=== PATIENT | male | born 1980 | race Caucasian/White ===

== ENCOUNTER → 2023-05-22 09:38 | Outpatient (REF) | payer OTHER, SELFPAY | LOC: RCS 09:38 | PROVIDERS: ATTENDING PHYSICIAN Internal Medicine Cardiovascular Disease; FAMILY PHYSICIAN Physician Assistant Medical | DX: Z95.2 Presence of prosthetic heart valve (principal); I49.8 Other specified cardiac arrhythmias; R00.2 Palpitations | CPT/HCPCS: 93225; 93226 ==

== ENCOUNTER → 2023-06-10 15:02 | Outpatient (REF) | payer OTHER, SELFPAY | LOC: DHCBC MAIN 15:02 | PROVIDERS: ATTENDING PHYSICIAN Internal Medicine Cardiovascular Disease; FAMILY PHYSICIAN Physician Assistant Medical | DX: Z95.2 Presence of prosthetic heart valve (principal); I71.010 Dissection of ascending aorta | CPT/HCPCS: 93306 ==

== ENCOUNTER → 2024-06-06 13:39 | Outpatient (REF) | payer OTHER, SELFPAY | LOC: PAVMRI 13:39 | PROVIDERS: ATTENDING PHYSICIAN Internal Medicine Cardiovascular Disease; FAMILY PHYSICIAN Family Medicine | DX: I71.010 Dissection of ascending aorta (principal); Z95.2 Presence of prosthetic heart valve | CPT/HCPCS: 71555; 76014; A9585 ==

== ENCOUNTER 2024-06-28 03:20 | Emergency (ER) | payer OTHER, SELFPAY ==
[2024-06-28] VITALS (8 sets, daily range): BP systolic 114–143; BP diastolic 62–80
--- NOTE | 2024-06-28 03:36 | ED.GENMED ---
History of Present Illness
<Yasmine Zavala PA-C - Last Filed: 06/28/24 22:56>
General
Chief Complaint: Chest Pain
Source: patient
Exam Limitations: none
Time Seen by Provider: 06/28/24 03:20
Nursing documentation reviewed up to this point in time: agreed with
History of Present Illness
History of Present Illness:
43-year-old male with a past medical history of tobacco use, hyperlipidemia, type A aortic dissection, anxiety, presents emergency department today with concerns of chest pain for the past 4 hours or so. Patient states that he was lying down in bed
when he had a sudden onset of chest pain and pressure. Patient compares this pain to when he had an aortic dissection in 2019. 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 At that time, he had repair with mechanical aortic
valve replacement as well. He does take Coumadin for this. 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 He states that occasionally pain will radiate into
the right upper abdomen. He denies any nausea or vomiting. Denies any fevers or chills. He denies any history of [place]. He denies any syncopal episodes, lightheadedness, dizziness. He denies any back pain. He denies any abdominal pain.
Review of Systems
<Yasmine Zavala PA-C - Last Filed: 06/28/24 22:56>
Review of Systems
All Other Systems: ROS reviewed and negative except as documented in HPI and ROS
Phy Exam
<Yasmine Zavala PA-C - Last Filed: 06/28/24 22:56>
Physical Exam
Physical Exam:
General: Patient is well appearing and in no acute distress; non-toxic
Skin: Warm and dry, no rashes or lesions
Head: Normocephalic, atraumatic
Eyes: Sclera non-icteric. EOMs intact.
Cardiac: Regular rate and rhythm, systolic click noted
Peripheral Vascular: No lower extremity edema, 2+ dorsalis pedis pulses bilaterally. 2+ radial pulses bilaterally.
Pulm: Normal respiratory effort, no wheezes, rales, rhonchi
Abdomen: No abdominal tenderness to palpation
Musculoskeletal: No tenderness to palpation of the external chest wall
Neuro: CN II-XII intact, no focal neurologic deficits.
Psychiatric: Appropriate mood and affect.
Scores
<Yasmine Zavala PA-C - Last Filed: 06/28/24 22:56>
Heart Score for Chest Pain Patients
STEMI patient?: No
History: Slightly or Non-Suspicious
ECG: Normal
Age: </= 45 years
Risk Factors: 1 or 2 Risk Factors
Troponin: </= Normal Limit
Heart Score for Chest Pain Patients: 1
Heart Score Risk: 2.5% MACE over next 6 weeks
Course
<Yasmine Zavala PA-C - Last Filed: 06/28/24 22:56>
Orders/Labs/Results
Orders:
Orders
06/28/24 03:22
Electrocardiogram (*1) Urgent
Reason for Study: Chest Pain
06/28/24 03:23
EKG- Treatment ONCE
06/28/24 03:36
CT Chest/abd/pelvis Angio W/wo Urgent
Comment:
Reason For Exam: chest pain
06/28/24 03:41
Complete Blood Count/With Diff Urgent
Comprehensive Metabolic Panel Urgent
Lipase Urgent
Prothrombin Time Urgent
Troponin I Q3H
06/28/24 05:30
Troponin I Urgent
06/28/24 05:32
US Abdomen Limited Urgent
Comment:
Reason For Exam: RUQ pain
06/28/24 06:14
Electrocardiogram (*1) Urgent
Reason for Study: Chest Pain
EKG- Treatment ONCE
06/28/24 08:27
Acetaminophen [Tylenol] 650 mg PO NOW STA
Abnormal Lab Results
06/28/24
03:41
Absolute Monos (auto) 0.7 H 10^3/uL
(0.1-0.6)
PT 36.9 H Sec
(11.4-14.6)
Carbon Dioxide 33 H mmol/L
(22-30)
Glucose 118 H mg/dl
(70-99)
ALT 57 H U/L
(0-50)
06/28/24 03:41
06/28/24 03:41
Vital Signs
Initial and Last Documented VS:
Initial Vital Signs
BP
141/78
06/28/24 03:21
Last Documented Vital Signs
Temp Pulse Resp BP Pulse Ox
99.4 F 52 14 121/71 94
06/28/24 03:24 06/28/24 08:30 06/28/24 08:30 06/28/24 08:00 06/28/24 08:15
Kalelt;Alem Brown, DO - Last Filed: 06/28/24 06:23>
Orders/Labs/Results
Orders:
Orders
06/28/24 03:22
Electrocardiogram (*1) Urgent
Reason for Study: Chest Pain
06/28/24 03:23
EKG- Treatment ONCE
06/28/24 03:36
CT Chest/abd/pelvis Angio W/wo Urgent
Comment:
Reason For Exam: chest pain
06/28/24 03:41
Complete Blood Count/With Diff Urgent
Comprehensive Metabolic Panel Urgent
Lipase Urgent
Prothrombin Time Urgent
Troponin I Q3H
06/28/24 05:30
Troponin I Urgent
06/28/24 05:32
US Abdomen Limited Urgent
Comment:
Reason For Exam: RUQ pain
06/28/24 06:14
Electrocardiogram (*1) Urgent
Reason for Study: Chest Pain
EKG- Treatment ONCE
06/28/24 08:27
Acetaminophen [Tylenol] 650 mg PO NOW STA
Abnormal Lab Results
06/28/24
03:41
Absolute Monos (auto) 0.7 H 10^3/uL
(0.1-0.6)
PT 36.9 H Sec
(11.4-14.6)
Carbon Dioxide 33 H mmol/L
(22-30)
Glucose 118 H mg/dl
(70-99)
ALT 57 H U/L
(0-50)
06/28/24 03:41
06/28/24 03:41
Vital Signs
Initial and Last Documented VS:
Initial Vital Signs
BP
141/78
06/28/24 03:21
Last Documented Vital Signs
Temp Pulse Resp BP Pulse Ox
99.4 F 52 14 121/71 94
06/28/24 03:24 06/28/24 08:30 06/28/24 08:30 06/28/24 08:00 06/28/24 08:15
Kalelt;Yasmine Zavala PA-C - Last Filed: 06/28/24 22:56>
MDM/Problems Addressed
Differential Diagnosis Includes:
ddx include ACS, progression of aortic dissection, GERD, biliary colic, musculoskeletal sprain/strain
MDM/Problems Addressed:
43-year-old male with a past medical history of tobacco use, hyperlipidemia, type A aortic dissection, anxiety, presents emergency department today with concerns of chest pain for the past 4 hours or so. Patient states that he was lying down in bed
when he had a sudden onset of chest pain and pressure. He did present to when he had an acute dissection. He also notes right-sided paresthesias. Physical exam he is well-appearing in no acute distress his vital signs are stable. He has no
tenderness palpation of external chest wall. 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
intramural hematoma or penetrating thoracic ulcer. When comparing to prior scans, there appears to be no change, no new findings. His EKG shows normal sinus rhythm with occasional PVCs no ischemic changes his initial troponin is undetectable.
When reassessed, patient does point to his right upper abdominal quadrant stating is where he has pressure, will order ultrasound to assess for acute cholecystitis/biliary colic.
<Yasmine Zavala PA-C - Last Filed: 06/28/24 22:56>
*Pulse Oximetry
Patient hypoxic: no
*EKG
Interpreted by ED Provider?: Yes
Comparison EKG: no comparison EKG present
Heart Rate: 74
Rhythm: sinus and PVC's
Junior: normal axis
*Critical Care Note
Total Time (30-74mins, 75-104mins- exclusive of procedures): Not Applicable
Data Reviewed
Review of Other/Old Records Reveals: Records (Reviewed Holter monitor report from 05/22/2023 revealed sinus rhythm with frequent reported, reviewed prior echo from 06/10/2023 echo shows normally functioning mechanical aortic valve with no significant
changes)
Source: patient and records
ED Attending Note
<Yasmine Zavala PA-C - Last Filed: 06/28/24 22:56>
-
Portions of this chart may have been created with voice recognition software.� Occasional wrong word or��sound alike� substitutions may have occurred due to the inherent limitations of voice recognition software.
<Alem Brown DO - Last Filed: 06/28/24 06:23>
ED Attending Note
Patient seen and examined by attending physician: Yes
I performed a history and physical exam of patient and discussed management with resident, I reviewed resident's note and agree with documented findings and plan of care.: Yes
ED Attending Note:
43-year-old gentleman with history of type A aortic dissection with ascending aorta repair, mechanical aortic valve replacement April 2020.
Presents with acute right upper quadrant/right lower chest pain that radiates to his back and reports similar pain experienced with aortic dissection in 2020. He notes mild right arm numbness which has been chronic and unchanged since postop period.
Review of records reveals radiology report March 2022, CT angiogram chest abdomen pelvis revealing postoperative changes related to ascending aortic replacement with graft extending from the aortic root through the proximal arch, bypass graft
extending from the ascending aortic graft through the right coronary artery. Dissection flap is visualized just distal to the takeoff of the left subclavian. Proximal descending aorta is ectatic, unchanged. Distal descending aorta is also
slightly ectatic to about 3.3 cm, unchanged. Extent of the dissection is unchanged again extending to the level of the right internal iliac origin and the left common iliac. There is no propagation of the dissection, no periaortic hematoma.
43-year-old gentleman appears his stated age. Awake and alert, mildly anxious but easily communicative.
Heart is regular rate and rhythm, mechanical click.
Lungs are clear to auscultation.
Abdomen with mild tenderness right upper quadrant. Palpation of right upper quadrant seems to reproduce patient's discomfort.
Concern for ACS, progression of aortic dissection, aortic aneurysm, biliary colic/cholecystitis, GERD.
EKG is unremarkable, no evidence of STEMI.
Will check labs including troponin and plan for CTA chest abdomen pelvis. Consider abdominal ultrasound.
Discharge Plan
Departure
Patient Disposition: Home (Routine Discharge)
Date of Disposition: 06/28/24
Time of Disposition: 08:18
Patient with high blood pressure during this ER visit?: Yes
Condition: Good
Discharge Problem:
Chest pain, Arm paresthesia, right
Instructions: Chest pain - Discharge instructions, BLOOD PRESSURE
Prescriptions:
No Action
atorvastatin 40 mg Tablet
40 mg PO DAILY
citalopram 40 mg Tablet
40 mg PO DAILY
aspirin 325 mg Tablet
325 mg PO DAILY
warfarin 7.5 mg Tablet
7.5 mg PO DAILY
hydroxyzine pamoate [Vistaril] 25 mg Capsule
25 mg PO PRN PRN (Reason: anxiety)
Referrals:
Boo Castro PA-C [Family Provider] -
David Celis MD [Active] - Call in 1-3 days for appt
Activity Restrictions/Additional Instructions:
Please call Dr. Celis's office today to schedule an appointment for follow up.
PLEASE RETURN TO THE EMERGENCY DEPARTMENT SHOULD YOU DEVELOP ACUTE WORSENING OF YOUR SYMPTOMS, SHORTNESS OF BREATH, FAINTING SPELLS, NECK PAIN, OR ANY OTHER SIGNS OR SYMPTOMS WORRISOME TO YOU.
Interventions
Interventions:
*Risk Screen - Suicide Last Done: 06/28/24 03:24
*General Assessment Last Done: 06/28/24 03:24
*Neglect/Abuse Screening Last Done: 06/28/24 03:24
*ED- Fall Risk Assessment Last Done: 06/28/24 03:24
*ED COVID-19 Vaccine History Last Done: 06/28/24 03:24
*Nursing Disposition Last Done: 06/28/24 08:40
ED- Cardiac Assessment Last Done: 06/28/24 03:24
Discharge Date and Time
Discharge Date/Time: 06/28/24 08:40
Print Language: PERSIAN
[2024-06-28 03:51] LABS: % Basophils 0.8 % (0-2); % Eosinophils 1.9 % (0-6); % Immature Granulocytes 0.1 % (0-0.5); % Monocytes 9.3 % (1.7-9.3); % Neutrophils 65.9 % (42.2-75.2); Absolute Basophils 0.1 10^3/uL (0-0.2); Absolute Eosinophils 0.1 10^3/uL (0-0.7); Absolute Lymphocytes 1.6 10^3/uL (1.2-3.4); Absolute Monocytes 0.7 10^3/uL (0.1-0.6); Absolute Neutrophils 4.8 10^3/uL (1.4-6.5); Hematocrit 44.4 % (39.0-52.0); Hemoglobin 15.6 g/dL (13.0-18.0); Mean Corp Hgb Conc. 35.1 g/dL (33.0-37.0); Mean Corpuscular Hgb 30.2 pg (27.0-31.0); Mean Corpuscular Volume 85.9 fL (80.0-94.0); Mean Platelet Volume 9.7 fL (7.4-10.4); Nucleated Red Blood Cells % 0 % (-); Platelet Count 201 10^3/uL (130-400); Red Blood Cell Count 5.17 10^6/uL (4.70-6.10); Red Cell Dist. Width 12.9 % (11.5-14.5); White Blood Cell Count 7.2 10^3/uL (4.8-10.8)
[2024-06-28 04:09] LABS: INR 3.77; PT 36.9 Sec (11.4-14.6)
[2024-06-28 04:13] LABS: Troponin I < 0.012 ng/ml
[2024-06-28 04:15] LABS: ALT (SGPT) 57 U/L (0-50); AST (SGOT) 43 U/L (17-59); Albumin 4.1 g/dl (3.5-5.0); Alkaline Phosphatase 86 U/L (38-126); Blood Urea Nitrogen 17 mg/dl (9-20); Calcium 9.3 mg/dl (8.4-10.2); Carbon Dioxide 33 mmol/L (22-30); Chloride 103 mmol/L (98-107); Estimated Creatinine Clearance 103 ml/min; Glucose 118 mg/dl (70-99); Lipase 95 U/L (23-300); Potassium 4.1 mmol/L (3.5-5.1); Sodium 142 mmol/L (135-145); Total Bilirubin 0.9 mg/dl (0.2-1.3); Total Protein 6.6 g/dl (6.3-8.2); eGFR > 60.00
[2024-06-28 06:44] LABS: Troponin I < 0.012 ng/ml
[2024-06-28] MEDS: TYLENOL 650 MG PO (08:39)
== END 2024-06-28 08:40 | disposition home or self-care (01) ==
LOC: EMR 03:20
PROVIDERS: Physician Assistant; EMERGENCY PHYSICIAN Emergency Medicine; FAMILY PHYSICIAN Physician Assistant Medical
DX: R07.89 Other chest pain (principal); R20.2 Paresthesia of skin; E78.5 Hyperlipidemia, unspecified; I71.019 Dissection of thoracic aorta, unspecified; I71.21 Aneurysm of the ascending aorta, without rupture; R03.0 Elevated blood-pressure reading, without diagnosis of hypertension; Z87.891 Personal history of nicotine dependence
CPT/HCPCS: 99285; 71275; 74174; 76705; 80053; 83690; 84484; 85025; 85610; 93005; Q9967

== ENCOUNTER 2024-07-08 06:22 | Day surgery (SDC) | payer OTHER, SELFPAY ==
[2024-07-08] VITALS (7 sets, daily range): BP systolic 110–117; BP diastolic 60–74; BMI 28.5
== END 2024-07-08 16:08 | disposition home or self-care (01) ==
LOC: SDS 06:22
PROVIDERS: ATTENDING PHYSICIAN Urology
DX: N35.912 Unspecified bulbous urethral stricture, male (principal)
CPT/HCPCS: 52284; C1726

== ENCOUNTER 2024-07-16 16:02 | Emergency (ER) | payer OTHER, SELFPAY ==
[2024-07-16 16:19] VITALS: BP 126/80
[2024-07-16 16:51] LABS: Urine Albumin 4+ (Neg - Trace); Urine Bilirubin Negative (Negative); Urine Character Bloody (Clear); Urine Color Red; Urine Glucose Negative (Negative); Urine Ketone 3+ (Negative); Urine Leukocyte Negative (Negative); Urine Nitrite Negative (Negative); Urine Occult Blood 4+ (Negative); Urine Specific Gravity 1.015 (<1.030); Urine Urobilinogen Negative (Neg - 1+); Urine pH 6.5 (5.0-9.0)
[2024-07-16 16:52] LABS: % Basophils 0.6 % (0-2); % Eosinophils 0.6 % (0-6); % Immature Granulocytes 0.2 % (0-0.5); % Lymphocytes 13.2 % (20.5-51.1); % Monocytes 16.5 % (1.7-9.3); % Neutrophils 68.9 % (42.2-75.2); Absolute Basophils 0.1 10^3/uL (0-0.2); Absolute Eosinophils 0.1 10^3/uL (0-0.7); Absolute Lymphocytes 1.2 10^3/uL (1.2-3.4); Absolute Monocytes 1.5 10^3/uL (0.1-0.6); Absolute Neutrophils 6.2 10^3/uL (1.4-6.5); Hematocrit 43.1 % (39.0-52.0); Hemoglobin 15.3 g/dL (13.0-18.0); Mean Corp Hgb Conc. 35.5 g/dL (33.0-37.0); Mean Corpuscular Hgb 30.1 pg (27.0-31.0); Mean Corpuscular Volume 84.7 fL (80.0-94.0); Mean Platelet Volume 10.2 fL (7.4-10.4); Nucleated Red Blood Cells % 0 % (-); Platelet Count 217 10^3/uL (130-400); Red Blood Cell Count 5.09 10^6/uL (4.70-6.10); Red Cell Dist. Width 12.7 % (11.5-14.5); White Blood Cell Count 8.9 10^3/uL (4.8-10.8)
[2024-07-16 17:00] LABS: INR 2.84; PT 29.8 Sec (11.4-14.6)
[2024-07-16 17:06] LABS: Urine Bacteria Few (Negative); Urine Red Blood Cell >100 /HPF (0-2); Urine Squamous Cell 0-2 /LPF (Few); Urine Yeast Moderate (Negative)
[2024-07-16 17:08] LABS: ALT (SGPT) 20 U/L (0-50); AST (SGOT) 25 U/L (17-59); Albumin 4.4 g/dl (3.5-5.0); Alkaline Phosphatase 74 U/L (38-126); Blood Urea Nitrogen 17 mg/dl (9-20); Calcium 9.1 mg/dl (8.4-10.2); Carbon Dioxide 23 mmol/L (22-30); Chloride 108 mmol/L (98-107); Glucose 139 mg/dl (70-99); Potassium 3.8 mmol/L (3.5-5.1); Sodium 138 mmol/L (135-145); Total Bilirubin 2.1 mg/dl (0.2-1.3); Total Protein 7.3 g/dl (6.3-8.2); eGFR > 60.00
[2024-07-16 17:14] LABS: Troponin I < 0.012 ng/ml
[2024-07-16 20:34] VITALS: BP 137/64
--- NOTE | 2024-07-16 20:37 | ED.GENMED ---
History of Present Illness
<Yasmine Zavala PA-C - Last Filed: 07/17/24 07:36>
General
Chief Complaint: Chest Pain
Source: patient
Exam Limitations: none
Time Seen by Provider: 07/16/24 20:36
Nursing documentation reviewed up to this point in time: agreed with
History of Present Illness
History of Present Illness:
43-year-old male with a past medical history of tobacco use, hyperlipidemia, type aortic dissection, anxiety, presents emergency department with concerns of constant chest pain for the past 3 days. Patient reports that his chest pain started when
he was just at home relaxing and did not relate to exertion. He notes that he has shortness of breath with this as well he notes that he has periodic episodes of lightheadedness. He reports that the pain is worse when he takes a breath. Patient
reports that this feels different than when he had the pain with his aortic dissection. Patient has never had pain similar to this before. He denies any abdominal pain. Patient describes the pain as someone kneeling on his chest and a constant
pressure. He also feels like he has had pain on his right posterior calf. Of note, patient did have a procedure with Dr. Jin on 07/08/2024 where he had a ureteral stricture corrected and he had a Mclean placed for a few days and had the Mclean
removed on 07/13/2024 and reports that since then he has had painless hematuria. He denies any pelvic pain. He denies any burning with urination. He denies any feelings of urinary retention or hesitancy.
Review of Systems
<Yasmine Zavala PA-C - Last Filed: 07/17/24 07:36>
Review of Systems
All Other Systems: ROS reviewed and negative except as documented in HPI and ROS
Phy Exam
<Yasmine Zavala PA-C - Last Filed: 07/17/24 07:36>
Physical Exam
Physical Exam:
General: Patient is well appearing and in no acute distress; non-toxic
Skin: Warm and dry, no rashes or lesions
Head: Normocephalic, atraumatic
Eyes: Sclera non-icteric. EOMs intact.
Cardiac: Regular rate and rhythm, systolic mechanical valve murmur noted, no tenderness to palpation of the external chest wall
Peripheral Vascular: No lower extremity swelling or edema
Pulm: Normal respiratory effort, no wheezes, rales, or rhonchi
Abdomen: No abdominal tenderness to palpation
Neuro: CN II-XII intact, no focal neurologic deficits.
Psychiatric: Appropriate mood and affect.
Scores
<Yasmine Zavala PA-C - Last Filed: 07/17/24 07:36>
Heart Score for Chest Pain Patients
STEMI patient?: No
History: Slightly or Non-Suspicious
ECG: Normal
Age: </= 45 years
Risk Factors: >/= 3 Risk Factors or History of CAD
Troponin: </= Normal Limit
Heart Score for Chest Pain Patients: 2
Heart Score Risk: 2.5% MACE over next 6 weeks
<Donaldo Rosario PA-C - Last Filed: 07/17/24 11:42>
Heart Score for Chest Pain Patients
Heart Score for Chest Pain Patients: 2
Heart Score Risk: 2.5% MACE over next 6 weeks
Course
<NOAH Watson Last Filed: 07/17/24 07:36>
Orders/Labs/Results
Orders:
Orders
07/16/24 16:23
Electrocardiogram (*1) Urgent
Reason for Study: Chest Pain
EKG- Treatment ONCE
07/16/24 16:39
Type And Crossmatch [Type+Screen] Urgent
Complete Blood Count/With Diff Urgent
Comprehensive Metabolic Panel Urgent
Direct Bilirubin Urgent
Comment: ADD ON
Prothrombin Time Urgent
Troponin I Urgent
Urinalysis Reflex To Culture Urgent
Date Specimen was Collected: 07/16/24
Time Specimen was Collected: 16:23
Urine Microscopic Reflex Cult Urgent
Urine Culture Urgent
[place] Source: U
Specimen Description:
Date Specimen was Collected: 07/16/24
Time Specimen was Collected: 16:23
07/16/24 20:38
CT Chest PE Study Urgent
Comment:
Reason For Exam: SOB on exertion
US Legs, Right [US Periph Venous LOWER Ext RT] Urgent
Comment:
Reason For Exam: right calf discomfort
07/16/24 22:40
Add On- LAB Urgent
Tests Added?: indirect bilirubin
Abnormal Lab Results
07/16/24
16:39
Absolute Monos (auto) 1.5 H 10^3/uL
(0.1-0.6)
Lymphocytes % 13.2 L %
(20.5-51.1)
Monocytes % 16.5 H %
(1.7-9.3)
PT 29.8 H Sec
(11.4-14.6)
Chloride 108 H mmol/L
(98-107)
Glucose 139 H mg/dl
(70-99)
Total Bilirubin 2.1 H mg/dl
(0.2-1.3)
Urine Ketones 3+ A
(Negative)
Ur Occult Blood Reflex 4+ A
(Negative)
Urine RBC >100 A /HPF
(0-2)
Urine WBC (Reflex) 11-15 A /HPF
(0-5)
Urine Bacteria (Reflex) Few A
(Negative)
Urine Yeast Moderate A
(Negative)
Urine Albumin (Reflex) 4+ A
(Neg - Trace)
07/16/24 16:39
07/16/24 16:39
Vital Signs
Initial and Last Documented VS:
Initial Vital Signs
Temp Pulse Resp BP Pulse Ox
98.9 F 98 16 126/80 100
07/16/24 16:19 07/16/24 16:19 07/16/24 16:19 07/16/24 16:19 07/16/24 16:19
Last Documented Vital Signs
Temp Pulse Resp BP Pulse Ox
99.0 F 67 16 121/67 97
07/16/24 20:34 07/17/24 00:55 07/17/24 00:55 07/17/24 00:55 07/17/24 00:55
<Forrest Cheatham MD - Last Filed: 07/16/24 23:02>
Orders/Labs/Results
Orders:
Orders
07/16/24 16:23
Electrocardiogram (*1) Urgent
Reason for Study: Chest Pain
EKG- Treatment ONCE
07/16/24 16:39
Type And Crossmatch [Type+Screen] Urgent
Complete Blood Count/With Diff Urgent
Comprehensive Metabolic Panel Urgent
Direct Bilirubin Urgent
Comment: ADD ON
Prothrombin Time Urgent
Troponin I Urgent
Urinalysis Reflex To Culture Urgent
Date Specimen was Collected: 07/16/24
Time Specimen was Collected: 16:23
Urine Microscopic Reflex Cult Urgent
Urine Culture Urgent
[place] Source: U
Specimen Description:
Date Specimen was Collected: 07/16/24
Time Specimen was Collected: 16:23
07/16/24 20:38
CT Chest PE Study Urgent
Comment:
Reason For Exam: SOB on exertion
US Legs, Right [US Periph Venous LOWER Ext RT] Urgent
Comment:
Reason For Exam: right calf discomfort
07/16/24 22:40
Add On- LAB Urgent
Tests Added?: indirect bilirubin
Abnormal Lab Results
07/16/24
16:39
Absolute Monos (auto) 1.5 H 10^3/uL
(0.1-0.6)
Lymphocytes % 13.2 L %
(20.5-51.1)
Monocytes % 16.5 H %
(1.7-9.3)
PT 29.8 H Sec
(11.4-14.6)
Chloride 108 H mmol/L
(98-107)
Glucose 139 H mg/dl
(70-99)
Total Bilirubin 2.1 H mg/dl
(0.2-1.3)
Urine Ketones 3+ A
(Negative)
Ur Occult Blood Reflex 4+ A
(Negative)
Urine RBC >100 A /HPF
(0-2)
Urine WBC (Reflex) 11-15 A /HPF
(0-5)
Urine Bacteria (Reflex) Few A
(Negative)
Urine Yeast Moderate A
(Negative)
Urine Albumin (Reflex) 4+ A
(Neg - Trace)
07/16/24 16:39
07/16/24 16:39
Vital Signs
Initial and Last Documented VS:
Initial Vital Signs
Temp Pulse Resp BP Pulse Ox
98.9 F 98 16 126/80 100
07/16/24 16:19 07/16/24 16:19 07/16/24 16:19 07/16/24 16:19 07/16/24 16:19
Last Documented Vital Signs
Temp Pulse Resp BP Pulse Ox
99.0 F 67 16 121/67 97
07/16/24 20:34 07/17/24 00:55 07/17/24 00:55 07/17/24 00:55 07/17/24 00:55
<Donaldo Rosario PA-C - Last Filed: 07/17/24 11:42>
Orders/Labs/Results
Orders:
Orders
07/16/24 16:23
Electrocardiogram (*1) Urgent
Reason for Study: Chest Pain
EKG- Treatment ONCE
07/16/24 16:39
Type And Crossmatch [Type+Screen] Urgent
Complete Blood Count/With Diff Urgent
Comprehensive Metabolic Panel Urgent
Direct Bilirubin Urgent
Comment: ADD ON
Prothrombin Time Urgent
Troponin I Urgent
Urinalysis Reflex To Culture Urgent
Date Specimen was Collected: 07/16/24
Time Specimen was Collected: 16:23
Urine Microscopic Reflex Cult Urgent
Urine Culture Urgent
[place] Source: U
Specimen Description:
Date Specimen was Collected: 07/16/24
Time Specimen was Collected: 16:23
07/16/24 20:38
CT Chest PE Study Urgent
Comment:
Reason For Exam: SOB on exertion
US Legs, Right [US Periph Venous LOWER Ext RT] Urgent
Comment:
Reason For Exam: right calf discomfort
07/16/24 22:40
Add On- LAB Urgent
Tests Added?: indirect bilirubin
Abnormal Lab Results
07/16/24
16:39
Absolute Monos (auto) 1.5 H 10^3/uL
(0.1-0.6)
Lymphocytes % 13.2 L %
(20.5-51.1)
Monocytes % 16.5 H %
(1.7-9.3)
PT 29.8 H Sec
(11.4-14.6)
Chloride 108 H mmol/L
(98-107)
Glucose 139 H mg/dl
(70-99)
Total Bilirubin 2.1 H mg/dl
(0.2-1.3)
Urine Ketones 3+ A
(Negative)
Ur Occult Blood Reflex 4+ A
(Negative)
Urine RBC >100 A /HPF
(0-2)
Urine WBC (Reflex) 11-15 A /HPF
(0-5)
Urine Bacteria (Reflex) Few A
(Negative)
Urine Yeast Moderate A
(Negative)
Urine Albumin (Reflex) 4+ A
(Neg - Trace)
07/16/24 16:39
07/16/24 16:39
Vital Signs
Initial and Last Documented VS:
Initial Vital Signs
Temp Pulse Resp BP Pulse Ox
98.9 F 98 16 126/80 100
07/16/24 16:19 07/16/24 16:19 07/16/24 16:19 07/16/24 16:19 07/16/24 16:19
Last Documented Vital Signs
Temp Pulse Resp BP Pulse Ox
99.0 F 67 16 121/67 97
07/16/24 20:34 07/17/24 00:55 07/17/24 00:55 07/17/24 00:55 07/17/24 00:55
Kalelt;Yasmine Zavala PA-C - Last Filed: 07/17/24 07:36>
MDM/Problems Addressed
Differential Diagnosis Includes:
PE, ACS, costochondritis, UTI, pneumonia
MDM/Problems Addressed:
43-year-old male with a past medical history of tobacco use, hyperlipidemia, type aortic dissection, anxiety, presents emergency department with concerns of constant chest pain for the past 3 days. Patient reports that his chest pain started when
he was just at home relaxing and did not relate to exertion. He has associated calf pain. On physical exam, he is well appearing, in no acute distress. Systolic murmur noted mechanical heart valve. Did obtain CT PE study in light of pleuritic pain,
episodic shortness of breath, which was negative for PE but did show small pleural effusions although no exudate or consolidation. It showed no new changes to his dissection similar in appearance to prior scan. His troponin his undetectable. His
ECG shows normal sinus rhythm with occasional PVCs. Patient did have a follow up appointment with his music rehabilitation therapist between his last chest pain episode in June 28 and this episode today. No clear etiology to patient's pain at this time. In light
of patient's significant cardiac history, I did discharge patient with the chest pain hotline. Case reviewed with ED attending. Pt stable for discharge.
Patient does note some hematuria and urinary frequency. Suspect this is related to recent urologic procedure. Patient states that he usually gets antibiotics prior to procedures but did not get any abx this time. Urinalysis did show WBC, bacteria,
and yeast which is concerning for infection in light of symptoms and recent procedures. Patient states he did tolerate keflex in the past, will initiate. In light of yeast in urine, will defer to patient's urologist considering significant
interaction between diflucan and warfarin. Patient reports that he will call his urologist tomorrow morning.
Patient does have an isolated elevation in total bilirubin. His LFTs are normal. He has no abdominal pain. He has no signs of jaundice on exam. Considering indirect bilirubin elevated > direct, gilberts syndrome most likely however did discuss with
patient to follow up with primary to have this blood work repeated and further workup done. Patient expressed understanding. Patient stable for discharge.
Chronic conditions affecting care:
type A dissection
<Yasmine Zavala PA-C - Last Filed: 07/17/24 07:36>
*Pulse Oximetry
Patient hypoxic: no
*Critical Care Note
Total Time (30-74mins, 75-104mins- exclusive of procedures): Not Applicable
Data Reviewed
Review of Other/Old Records Reveals: Records (reviewed ER documentation from 06/28/24)
Source: patient and records
<Donaldo Rosario PA-C - Last Filed: 07/17/24 11:42>
Update Note
Update Note:
8:40 AM: Received call from radiology about patient's CT scan, they are concerned that there is some stranding around the aortic dissection that had previously been repaired which appears to be new from scan done previously. I contacted Dr. Shankar
from CT surgery to discuss, currently on his way to the hospital and will review the CT scan and contact me back. I also contacted the patient to discuss these results and see how he is currently feeling as he may require further intervention.
Since I did not personally evaluate the patient it is difficult for me to assess whether patient needs emergent intervention/evaluation or if this is something that is more chronic in nature related to the patient's already known aortic dissection
11:40 AM: I was able to get in contact with the patient who states currently feeling well. I reviewed the CT findings and my discussion with our cardiothoracic surgeon. Patient had his aortic dissection repair done in 2020 at [facility] by
Pasha Haynes. He currently does not have a cardiothoracic nor vascular surgeon that he follows with here. I gave him the information Dr. Shankar as well as Dr. Alexey Mclean for follow-up. Patient is aware of return precautions to the ER and
states he will follow-up with his primary care provider this week as well.
ED Attending Note
<Yasmine Zavala PA-C - Last Filed: 07/17/24 07:36>
-
Portions of this chart may have been created with voice recognition software.� Occasional wrong word or��sound alike� substitutions may have occurred due to the inherent limitations of voice recognition software.
<Forrest Cheatham MD - Last Filed: 07/16/24 23:02>
ED Attending Note
Patient seen and examined by attending physician: Yes
I performed the substantive portion of visit, reviewed & personally made and approve the management plan that is documented in note by myself or DANIEL.: Yes
ED Attending Note:
I have seen and evaluated the patient with a kiql-[id number]-pipe encounter. I have spoken to the [PA] and involved in the medical history, the physical exam, medical decision making.
Evaluation and management service: agree unless noted differently below.
Results interpretation: agree unless noted differently below.
43-year-old male with history of aortic dissection, recent Mclean catheter removal with recent procedure for ureteral stricture presenting to the emergency with chest pain. Patient says for the past few days he has been having chest pain that feels
like pressure in his chest. It is not exertional. No shortness of breath. This does not feel similar to when he had his dissection. No numbness tingling. No weakness. No history of blood clots. He is on Coumadin however they did hold it for
his procedure. He also notes that he has been having clots in his urine. He is able to fully empty his bladder. He does state that occurred after his procedure. During my evaluation patient is resting comfortably. His heart rate is regular rate
and rhythm. He does have 2+ radial pulses. Differential is broad with symptoms of atypical ACS versus PE though less likely as he is on Coumadin. Could be worsening of his dissection though less likely. Patient's painless hematuria secondary to
the procedure. His abdomen is soft benign. History exam not consistent with AAA. Will obtain CT scan and blood work. Anticipate discharge if studies are unremarkable.
Discharge Plan
Departure
Patient Disposition: Home (Routine Discharge)
Date of Disposition: 07/17/24
Time of Disposition: 00:17
Patient with high blood pressure during this ER visit?: Yes
Condition: Good
Discharge Problem:
Chest pain
Instructions: Chest Pain CBC Follow Up, BLOOD PRESSURE
Prescriptions:
New
cephalexin 500 mg capsule
500 mg PO QID 7 Days Qty: 28 0RF
No Action
atorvastatin 40 mg Tablet
40 mg PO DAILY
citalopram 40 mg Tablet
40 mg PO DAILY
aspirin 325 mg Tablet
325 mg PO DAILY
warfarin 7.5 mg Tablet
7.5 mg PO DAILY
hydroxyzine pamoate [Vistaril] 25 mg Capsule
25 mg PO PRN PRN (Reason: anxiety)
Referrals:
oBo Castro PA-C [Family Provider] -
Activity Restrictions/Additional Instructions:
Please call Dr. Jin's office first thing Thursday morning regarding yeast in urine.
Your CT scan showed no evidence of pulmonary embolism.
Please follow-up up with your primary care provider and your music rehabilitation therapist.
Please return the emergency department for new or worsening symptoms.
Interventions
Interventions:
*Risk Screen - Suicide Last Done: 07/16/24 16:19
*General Assessment Last Done: 07/17/24 00:55
*Neglect/Abuse Screening Last Done: 07/16/24 16:19
*ED- Fall Risk Assessment Last Done: 07/17/24 00:55
*ED COVID-19 Vaccine History Last Done: 07/17/24 00:55
*Nursing Disposition Last Done: 07/17/24 00:55
ED- Cardiac Assessment Last Done: 07/16/24 19:10
Discharge Date and Time
Discharge Date/Time: 07/17/24 00:55
Print Language: GREEK
[2024-07-16 23:12] LABS: Direct Bilirubin 0.2 mg/dl (0.0-0.4)
[2024-07-16 23:34] VITALS: BP 133/61
[2024-07-17] VITALS: BP 122/67
[2024-07-17 00:46] VITALS: BP 121/67
[2024-07-17 00:55] VITALS: BP 121/67
== END 2024-07-17 00:55 | disposition home or self-care (01) ==
LOC: EMR 16:02
PROVIDERS: Student in an Organized Health Care Education/Training Program; EMERGENCY PHYSICIAN Student in an Organized Health Care Education/Training Program; FAMILY PHYSICIAN Physician Assistant Medical; OTHER PHYSICIAN Internal Medicine Cardiovascular Disease
DX: R07.89 Other chest pain (principal); R06.02 Shortness of breath; R42 Dizziness and giddiness; R31.9 Hematuria, unspecified; R35.0 Frequency of micturition; R03.0 Elevated blood-pressure reading, without diagnosis of hypertension; I71.012 Dissection of descending thoracic aorta; E78.5 Hyperlipidemia, unspecified; F41.9 Anxiety disorder, unspecified; F32.A Depression, unspecified; F41.0 Panic disorder [episodic paroxysmal anxiety]; Z87.891 Personal history of nicotine dependence; Z98.890 Other specified postprocedural states; Z95.2 Presence of prosthetic heart valve; Z85.820 Personal history of malignant melanoma of skin
CPT/HCPCS: 99284; 71275; 80053; 81003; 81015; 82248; 84484; 85025; 85610; 86850; 86900; 86901; 87086; 93005; 93971; Q9967